=== PATIENT | male | born 1960 | race Caucasian/White ===

== ENCOUNTER 2017-03-29 16:06 | Emergency (ER) | payer OTHER ==
[~2017-03-29] VITALS: Ht 177.8 cm; Wt 77.0 kg
[2017-03-29 16:13] VITALS: BP 147/75; PULSE 67; RESP 18; TEMP 98.6; O2SAT 98
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
[2017-03-29] MEDS ORDERED: ROBA500T PO (18:17)
[2017-03-29] MEDS ORDERED: IBUP800T23 PO (18:17)
== END 2017-03-29 18:29 | disposition home or self-care (01) ==
LOC: PHEFT 16:06
DX: S29.012A Strain of muscle and tendon of back wall of thorax, initial encounter (principal); V43.52XA Car driver injured in collision with other type car in traffic accident, initial encounter
CPT/HCPCS: 72125; 99284